=== PATIENT | female | born 1965 | race Caucasian/White ===

== ENCOUNTER 2016-08-22 17:22 | Emergency (ER) | payer OTHER ==
[2016-08-22 18:06] VITALS: BP 131/71
[2016-08-22] MEDS ORDERED: SUCRALFATE 1 G/10 ML UDC PO ONE (20:11)
[2016-08-22] MEDS ORDERED: LIDOCAINE HCL 20 ML UDC PO ONE (20:11)
[2016-08-22] MEDS ORDERED: MAG HYDROX/ALUMINUM HYD/SIMETH 30 ML UDC PO ONE (20:11)
--- NOTE | 2016-08-22 20:14 | ERNOTE ---
ER Female HPI Stated Complaint: CHEST PAIN, URINARY PROBLEM Time Seen by Provider: 08/22/16 20:03 Source: patient Exam Limitations: no limitations Immunizations: IMMUNIZATION HX Immunizations Up to Date Yes History of Influenza Vaccine Yes Hx Pneumococcal Vaccination Yes Allergies/Adverse Reactions: Allergies amoxicillin trihydrate [From Augmentin] Adverse Reaction (Intermediate, Verified 05/29/16 08:46) PALPITATIONS potassium clavula *RETIRED-03/24/13 [From Augmentin] Adverse Reaction ( Intermediate, Verified 05/29/16 08:46) palpitations aspirin Adverse Reaction (Mild, Verified 05/29/16 08:46) upset stomach clindamycin Adverse Reaction (Mild, Verified 05/29/16 08:46) Nausea morphine Adverse Reaction (Mild, Verified 05/29/16 08:46) rash nitrofurantoin macrocrystalline [From Macrobid] Adverse Reaction (Mild, Verified 05/29/16 08:46) Nausea NSAIDS (Non-Steroidal Anti-Inflamma Adverse Reaction (Mild, Verified 05/29/16 08 :46) IRRITATES STOMACH LINING, also avoid r/t renal failure Penicillins Adverse Reaction (Mild, Verified 05/29/16 08:46) RASH pilocarpine Adverse Reaction (Mild, Verified 05/29/16 08:46) sweats Sulfa (Sulfonamide Antibiotics) [Sulfa(Sulfonamide Antibiotics)] Adverse Reaction (Mild, Verified 05/29/16 08:46) "MAKES HER SICK" Home Medications: HOME MEDICATIONS valACYclovir HCL [Valtrex] 500 mg PO DAILY 12/11/13 [Last Taken 09/14/14] Misoprostol [Cytotec] 200 mcg PO BID 09/17/14 [Last Taken Unknown] Duloxetine HCl [Cymbalta] 60 mg PO DAILY 03/06/15 [Last Taken Unknown] Nitrofurantoin Macrocrystal [Macrodantin] 100 mg PO DAILY 05/30/15 [Last Taken Unknown] Cyanocobalamin [Vitamin B-12] 1,000 mcg IJ Q30D 09/07/15 [Last Taken 05/03/16] Levetiracetam [Keppra] 1,000 mg PO BID 09/07/15 [Last Taken 09/27/15 04:30] Levothyroxine Sodium [Synthroid] 75 mcg PO DAILY 09/07/15 [Last Taken Unknown] Pregabalin [Lyrica] 200 mg PO BID 09/07/15 [Last Taken Unknown] Cholecalciferol (Vitamin D3) [Vitamin D3] 5,000 unit PO DAILY 05/16/16 [Last Taken Unknown] Escitalopram Oxalate [Lexapro] 10 mg PO DAILY 05/16/16 [Last Taken Unknown] Hydrochlorothiazide [Microzide] 12.5 mg PO DAILY 05/16/16 [Last Taken Unknown] Lamotrigine [Lamictal] 200 mg PO BID 05/16/16 [Last Taken Unknown] Loratadine [Claritin] 10 mg PO DAILY PRN 05/16/16 [Last Taken Unknown] Metoprolol Succinate [Toprol Xl] 100 mg PO DAILY 05/16/16 [Last Taken Unknown] Naproxen Sodium [Aleve] 220 mg PO BID 08/22/16 [Last Taken Unknown] Omeprazole 40 mg PO DAILY #30 capsule. 08/22/16 [Last Taken Unknown] Sulfamethoxazole/Trimethoprim [Bactrim Ds] 1 tab PO BID #10 tab 08/22/16 [Last Taken Unknown] traMADol HCL [Ultram] 50 mg PO BID 08/22/16 [Last Taken Unknown] - History of Present Illness Narrative: stabbing epigastric pain after eating. dysuria, frequency and cloudy urine Timing: Present: getting worse Quality: Present: moderate Activities at Onset: Present: eating Review of Systems - Review of Systems Constitutional: Absent: recent illness EYE: Present: no symptoms reported ENT: Present: no symptoms reported Respiratory: Absent: shortness of breath Cardiology: Absent: chest pain Gastrointestinal/Abdominal: Present: nausea, eating less. Absent: diarrhea, constipation Genitourinary: Present: frequency, pain, dysuria Musculoskeletal: Present: no symptoms reported Skin: Present: no symptoms reported Neurological: Present: no symptoms reported Endocrine: Present: no symptoms reported Hematologic/Lymphatic: Present: no symptoms reported Psych: Present: no symptoms reported - Patient's Past Medical History Patient History - Medical: Anxiety, Arthritis, Chronic Pain, Diabetes Type 2 Insulin Dependent, Depression, Fibromyalgia, Hypothyroidism, Obesity, Seizures, UTI'S Patient History - Cardiac/Respiratory: Hypertension Patient History - Cancer: No Hx of Cancer Patient History - Surgical Procedures: Back Surgery, Cholecystectomy, Gastric Bypass, Hysterectomy, Total Knee Replacement, Other - Family History Father Family History - Medical: Family History - Cardiac/Respiratory: Myocardial Infarction Mother Family History - Cardiac/Respiratory: Hypertension Brother Family History - Cardiac/Respiratory: Hypertension Maternal/Paternal Grandparents Family History - Medical: Diabetes Type 2 Family History - Cardiac/Respiratory: Hypertension - Social History Living Situations: parents Does anyone smoke in the home?: Yes Smoking Status: Current every day smoker Have you smoked in the past 12 months: Yes Alcohol Use: none Drug Use: none Physical Exam - Physical Exam General Appearance: Present: wd/wn, alert, no apparent distress Eye Exam: Normal inspection: bilateral, PERRL: bilateral Ears, Nose, Throat: Present: normal ENT inspection, hearing grossly normal Neck: Present: normal inspection, nontender Respiratory: Present: no respiratory distress, normal breath sounds Cardiovascular/Chest: Present: regular rate, rhythm, no murmur, normal peripheral pulses Gastrointestinal/Abdominal: Present: normal bowel sounds, soft, tenderness - LUQ and epigastric Extremity Exam: Present: normal inspection, non-tender Neurological Exam: Present: alert, oriented, normal mood/affect, no motor/ sensory deficits Skin Exam: Present: normal color, warm/dry Lymphatic Exam: Present: no adenopathy ED Progress - Results and Orders Patient's Lab Results:: I have reviewed the patient's lab results. Results and Orders: Laboratory Tests 08/22/16 20:20 Urine Color Yellow Urine Appearance Turbid Urine pH 6.0 Ur Specific [place] 1.025 Urine Protein 30 H Urine Glucose (UA) Negative Urine Ketones Negative Urine Blood 250 H Urine Nitrate Positive H Urine Bilirubin Negative Prot Sulfosalicylic Acd 1+ Urine Urobilinogen Normal Ur Leukocyte Esterase 100 H Urine RBC >50 H Urine WBC >50 H Ur Epithelial Cells 0-5 Urine Bacteria 1+ H Urine Culture Comments Culture to follow - Vital Signs Patient's Vital Signs:: I have reviewed the patient's vital signs. Vital Signs: Vital Signs 08/22/16 17:55 Temperature 36 C L Pulse Rate 57 L Respiratory 18 Rate Blood Pressure 131/71 O2 Sat by Pulse 96 Oximetry - Progress/Reassessment Chief Complaint: Urinary Tract Problems Departure Clinical Impression: Urinary tract infection Qualifiers: Urinary tract infection type: acute cystitis Hematuria presence: with hematuria Qualified Code(s): N30.01 - Acute cystitis with hematuria GERD (gastroesophageal reflux disease) Qualifiers: Esophagitis presence: esophagitis presence not specified Qualified Code(s): K21.9 - Gastro-esophageal reflux disease without esophagitis - Departure Disposition: Home Follow Up Needed Condition: Good Instructions: Heartburn, [id number] Referrals: Ridge Caal DO [Primary Care Provider] - Prescriptions: Omeprazole 40 mg PO DAILY #30 capsule. Sulfamethoxazole/Trimethoprim [Bactrim Ds] 1 tab PO BID #10 tab
[2016-08-22 20:35] LABS: Urine Bilirubin Negative (NEGATIVE); Urine Blood 250 /ul (NEGATIVE); Urine Ketone Negative (NEGATIVE); Urine Protein 30 mg/dL (NEGATIVE); Urine Specific Gravity 1.025 SP.GR. (1.005-1.010); Urine Urobilinogen Normal (NORMAL)
[2016-08-22 20:46] LABS: Urine Appearance Turbid; Urine Bacteria 1+; Urine Color Yellow; Urine Nitrite Positive (NEGATIVE); Urine RBC >50 /hpf (0-5); Urine WBC >50 /hpf (0-5)
[2016-08-22] MEDS ORDERED: SULFAMETHOXAZOLE/TRIMETHOPRIM 1 TAB TABLET PO ONE (21:13)
[2016-08-22] MEDS ORDERED: SULFAMETHOXAZOLE/TRIMETHOPRIM 1 TAB TABLET ONE (21:16)
== END 2016-08-22 21:25 | disposition home or self-care (01) ==
LOC: ER 17:22
DX: K21.9 Gastro-esophageal reflux disease without esophagitis (principal); N30.01 Acute cystitis with hematuria; F17.210 Nicotine dependence, cigarettes, uncomplicated; Z96.659 Presence of unspecified artificial knee joint; Z90.710 Acquired absence of both cervix and uterus; Z90.49 Acquired absence of other specified parts of digestive tract; E03.9 Hypothyroidism, unspecified; F32.9 Major depressive disorder, single episode, unspecified; M79.7 Fibromyalgia; I10 Essential (primary) hypertension

== ENCOUNTER 2017-07-22 11:54 | Emergency (ER) | payer MEDICAID, OTHER ==
[2017-07-22 12:21] LABS: Hematocrit 46.2 % (37.0-47.0); Hemoglobin 15.7 gm/dL (12.5-16.0); Mean Cell Volume 103.6 fl (78-100); Mean Corpuscular Hemoglobin 35.2 pg (27-31); Mean Platelet Volume 10.2 fl (6.0-9.5); Neutrophil % 59.9 % (42-75.0); Platelet Count 337 K/mm3 (150-450); Red Blood Count 4.46 M/mm3 (4.2-5.4); White Blood Count 6.8 K/mm3 (4.0-10.5)
[2017-07-22 12:33] LABS: Urine Bilirubin 1 mg/dl (NEGATIVE); Urine Ketone 5 mg/dL (NEGATIVE); Urine Nitrite Negative (NEGATIVE); Urine Protein 100 mg/dL (NEGATIVE); Urine Specific Gravity >=1.030 SP.GR. (1.005-1.010); Urine Urobilinogen Normal (NORMAL)
[2017-07-22 12:35] LABS: Anion Gap 16.9 mmol/L (6.8-13.8); BUN/Creatinine Ratio 9.3 (9.0-21.6); Bilirubin, Total 0.5 mg/dL (0.0-1.1); Ca. Corrected For Albumin 9.3 mg/dL (8.4-10.2); Calcium * 9.6 mg/dL (7.9-10.9); Potassium 3.9 mmol/L (3.4-4.6); Total Protein 8.6 gm/dL (6.2-8.2)
[2017-07-22 12:41] LABS: Urine Appearance Slightly Cloudy; Urine Bacteria TRACE; Urine Blood 5 /ul (NEGATIVE); Urine Color Dark Yellow; Urine RBC None Seen /hpf (0-5); Urine WBC None Seen /hpf (0-5)
[2017-07-22] MEDS ORDERED: NORMAL SALINE 1,000 ML IV ONE (12:41)
[2017-07-22] MEDS ORDERED: ONDANSETRON HCL/PF 2 MG/ML VIAL IV ONE (12:41)
[2017-07-22] MEDS ORDERED: NALBUPHINE HCL 20 MG/ML AMPUL IV ONE (12:41)
--- NOTE | 2017-07-22 12:42 | ERNOTE ---
Abdominal HPI - Narrative Date of Service: 07/22/17 - General Chief Complaint: Abdominal Pain Time Seen by Provider: 07/22/17 12:21 Source: patient, RN notes reviewed, past records Exam Limitations: no limitations - Immun/Allergies/Home Medications Immunizatons: IMMUNIZATION HX Immunizations Up to Date Yes History of Influenza Vaccine Yes Hx Pneumococcal Vaccination Yes Allergies/Adverse Reactions: Allergies amoxicillin trihydrate [From Augmentin] Adverse Reaction (Intermediate, Verified 07/22/17 12:02) PALPITATIONS potassium clavula *RETIRED-03/24/13 [From Augmentin] Adverse Reaction ( Intermediate, Verified 07/22/17 12:02) palpitations aspirin Adverse Reaction (Mild, Verified 07/22/17 12:02) upset stomach clindamycin Adverse Reaction (Mild, Verified 07/22/17 12:02) Nausea morphine Adverse Reaction (Mild, Verified 07/22/17 12:02) rash nitrofurantoin macrocrystalline [From Macrobid] Adverse Reaction (Mild, Verified 07/22/17 12:02) Nausea NSAIDS (Non-Steroidal Anti-Inflamma Adverse Reaction (Mild, Verified 07/22/17 12 :02) IRRITATES STOMACH LINING, also avoid r/t renal failure Penicillins Adverse Reaction (Mild, Verified 07/22/17 12:02) RASH pilocarpine Adverse Reaction (Mild, Verified 07/22/17 12:02) sweats Sulfa (Sulfonamide Antibiotics) [Sulfa(Sulfonamide Antibiotics)] Adverse Reaction (Mild, Verified 07/22/17 12:02) "MAKES HER SICK" Home Medications: HOME MEDICATIONS valACYclovir HCL [Valtrex] 500 mg PO DAILY 12/11/13 [Last Taken 09/14/14] Misoprostol [Cytotec] 200 mcg PO BID 09/17/14 [Last Taken Unknown] Duloxetine HCl [Cymbalta] 60 mg PO DAILY 03/06/15 [Last Taken Unknown] Nitrofurantoin Macrocrystal [Macrodantin] 100 mg PO DAILY 05/30/15 [Last Taken Unknown] Levothyroxine Sodium [Synthroid] 75 mcg PO DAILY 09/07/15 [Last Taken Unknown] levETIRAcetam [Keppra] 1,000 mg PO BID 09/07/15 [Last Taken 09/27/15 04:30] Escitalopram Oxalate [Lexapro] 10 mg PO DAILY 05/16/16 [Last Taken Unknown] Hydrochlorothiazide [Microzide] 12.5 mg PO DAILY 05/16/16 [Last Taken Unknown] Loratadine [Claritin] 10 mg PO DAILY PRN 05/16/16 [Last Taken Unknown] Metoprolol Succinate [Toprol Xl] 100 mg PO DAILY 05/16/16 [Last Taken Unknown] lamoTRIgine [Lamictal] 200 mg PO BID 05/16/16 [Last Taken Unknown] Naproxen Sodium [Aleve] 220 mg PO BID 08/22/16 [Last Taken Unknown] Omeprazole 40 mg PO DAILY #30 capsule. 08/22/16 [Last Taken Unknown] traMADol HCL [Ultram] 50 mg PO BID 08/22/16 [Last Taken Unknown] HYDROcodone/ACETAMINOPHEN [Crandall 5-325] 1 - 2 tab PO Q6H PRN #16 tab 07/22/17 [ Last Taken Unknown] Ondansetron [Zofran Odt] 8 mg PO Q8H PRN #12 tab 07/22/17 [Last Taken Unknown] Vicodin 5-300 mg Tablet 07/23/17 [Last Taken Unknown] Zofran 07/23/17 [Last Taken Unknown] - History of Present Illness Narrative: 51 year old female presents to the ED for right lower quadrant abdominal pain that has been worsening over the past few days. She reports being unable to sleep last night due to the pain. She believes that she may have a kidney stone or kidney infection. She also report that she has been vomiting today, but she initially told the nurse that she had not been. She has been taking Tylenol for pain without improvement. She has also recently been seen by her doctor for right hip pain. She had an evaluation with PT a few days ago for treatment of the hip pain. Timing: constant Quality: severe Prior Treatment: Present: recently seen, treated by physician. Absent: currently on antibiotics Review of Systems - Review of Systems Constitutional: Present: fatigue, malaise, decreased activity level. Absent: fever, chills EYE: Present: no symptoms reported ENT: Absent: nose congestion, sore throat Respiratory: Absent: shortness of breath, cough Cardiology: Absent: chest pain, syncope, edema Gastrointestinal/Abdominal: Present: nausea, vomiting, abdominal pain. Absent: diarrhea, constipation, eating less, drinking less Genitourinary: Absent: frequency, dysuria, hematuria Musculoskeletal: Present: muscle pain, joint pain Skin: Absent: rash, lesions, change in color Neurological: Absent: headache, dizziness/light-headedness, weakness Endocrine: Present: no symptoms reported Hematologic/Lymphatic: Present: no symptoms reported Psych: Present: no symptoms reported - Patient's Past Medical History Patient History - Medical: Anxiety, Arthritis, Chronic Pain, Diabetes Type 2 Insulin Dependent, Depression, Fibromyalgia, Hypothyroidism, Obesity, Seizures, UTI'S Patient History - Cardiac/Respiratory: Asthma, Hypertension Patient History - Cancer: No Hx of Cancer Patient History - Surgical Procedures: Back Surgery, Cholecystectomy, Gastric Bypass, Hysterectomy, Total Knee Replacement, Other Patient History - Other: None LMP (females 10-50): Menopausal - Family History Father Family History - Medical: Family History - Cardiac/Respiratory: Myocardial Infarction Mother Family History - Cardiac/Respiratory: Hypertension Brother Family History - Cardiac/Respiratory: Hypertension Maternal/Paternal Grandparents Family History - Medical: Diabetes Type 2 Family History - Cardiac/Respiratory: Hypertension - Social History Living Situations: home Abuse History: No History of abuse Psych History: Hx of Anxiety - Immunizations Immunizations Up to Date: Yes Hx Pneumococcal Vaccination: Yes History of Influenza Vaccine: Yes Physical Exam - Physical Exam General Appearance: Present: alert, no apparent distress, obese Head Exam: Present: normal inspection Eye Exam: Normal inspection: bilateral Ears, Nose, Throat: Present: normal ENT inspection, normal pharynx Neck: Present: normal inspection, nontender, supple Respiratory: Present: no respiratory distress, normal breath sounds, no accessory muscle use, lungs clear Cardiovascular/Chest: Present: regular rate, rhythm, no murmur, normal peripheral pulses Gastrointestinal/Abdominal: Present: normal bowel sounds, soft, tenderness - lateral right lower quadrant , distended - Obese Extremity Exam: Present: normal inspection, no edema Neurological Exam: Present: alert, oriented, normal mood/affect, no motor/ sensory deficits Skin Exam: Present: normal color, warm/dry ED Progress - Results and Orders Patient's Lab Results:: I have reviewed the patient's lab results. - Vital Signs Patient's Vital Signs:: I have reviewed the patient's vital signs. Vital Signs: Vital Signs 07/22/17 11:58 Temperature 37.3 C Pulse Rate 58 L Respiratory 12 Rate Blood Pressure 124/77 O2 Sat by Pulse 100 Oximetry - CT/Ultrasound CT/Ultrasound Narrative: Stone protocol CT reviewed: IMPRESSION: 1. Multiple nonobstructing stones within the bilateral kidneys. No evidence of obstructive uropathy. 2. Postsurgical changes of [place]-en-Y gastric bypass with a small hiatal hernia. No evidence of internal hernia. 3. Nonvisualization the appendix. 4. Cholecystectomy. Normal caliber bile ducts. Electronically signed by Deanne Townsend D.O.. - Progress/Reassessment Chief Complaint: Abdominal Pain Progress:: Improved Plan - Plan Plan: Labs and CT are without any remarkable findings as to the etiology of her pain. Given that the pain extremely lateral, I feel that it is more muskuloskeletal in nature r/t her hip pain and recent PT rather than any abdominal process. The patient feels that she should be admitted overnight for observation and more testing tomorrow, however I see no indication for this. She was discharged with rx for Crandall and Zofran and is to contact her PCP for f/u tomorrow. Departure Clinical Impression: Right lower quadrant abdominal pain - Departure Disposition: Home Follow Up Needed Condition: Stable Instructions: Abdominal Pain, Adult, [id number] Additional Instructions: Drink plenty of water Continue your routine medications Follow up with Dr. Caal if symptoms continue, or return to ER if symptoms worsen Referrals: Ridge Caal DO [Primary Care Provider] - Prescriptions: HYDROcodone/ACETAMINOPHEN [[place] 5-325] 1 - 2 tab PO Q6H PRN #16 tab PRN Reason: Pain Ondansetron [Zofran Odt] 8 mg PO Q8H PRN #12 tab PRN Reason: Nausea
[2017-07-22] MEDS ORDERED: NALBUPHINE HCL 20 MG/ML AMPUL ONE (12:45)
[2017-07-22] MEDS ORDERED: ONDANSETRON HCL/PF 2 MG/ML VIAL ONE (12:45)
[2017-07-22 15:31] VITALS: BP 131/70
== END 2017-07-22 15:40 | disposition home or self-care (01) ==
LOC: ER 11:54
DX: R10.31 Right lower quadrant pain (principal); Z87.440 Personal history of urinary (tract) infections; F41.9 Anxiety disorder, unspecified; E03.9 Hypothyroidism, unspecified; R56.9 Unspecified convulsions; I10 Essential (primary) hypertension
CPT/HCPCS: 36415; 74176; 80053; 81001; 82150; 83690; 85025; 96374; 96375; 99284; J2405